=== PATIENT | female | born 1985 ===

== ENCOUNTER 2025-07-18 10:10 | Outpatient (AMB) | payer BC, SELFPAY ==
--- NOTE | 2025-07-18 10:05 | MHC.WMTHER ---
Intake Intake Visit Reasons: VIDEO OP Therapy Behavioral Health Assessment Weight Management Therapy Therapy Notes Details The patient is a 39-year-old female presenting for her initial session. The focus of today?s visit was to complete the intake and comprehensive assessment. She reports experiencing episodic anxiety lasting 1?2 weeks at a time. During these episodes, she notes a significant decrease in appetite and describes engaging in catastrophic thinking, particularly related to health concerns. She becomes preoccupied with fears of serious illness and reports feeling paranoid about potential harm coming to her children, especially when they are sick. These anxiety episodes typically occur a few times per year and are most often triggered by her children?s illnesses. The patient describes the past summer as particularly challenging, marked by frequent miscommunication with her , increased anxiety, and strained family dynamics. Current medications include Sertraline 25 mg daily, prescribed by her PCP, and Hydroxyzine 25 mg as needed for anxiety. Presenting Concerns Referral Source Self-referred. Reason for referral Continue MH treatment. Precipitating Event Increased anxiety with debilitating symptoms. Living Situation Current Living Situation Own At risk of losing current housing? No Satisfied with current living situation? Yes Comments Pt lives with her and 2 kids. Social History Family history and relationship Pt is and they have 2 children. They have been together for about 16 years total. PT is very close to her parents and she has 1 brother who lives in [facility], 1 hr away. Her 's family are close, he has 2 siblings. 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 Developmental history and status None, Currently WNL. Social support Parents, , a close friend with whom she speaks daily and other close girlfriends. 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 Community support None. Mosque/Spirituality Baptist Cultural/Ethnic information is Iranian, they follow Iranian ortodox culture. Legal Involvement and History Current or historical involvement with the legal system? Npne Education Highest grade completed Bachelors degree Currently enrolled in educational program? No Interested in further educational program? 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 Employment Employment Status Unemployed (3 years ago. ) Wants help to find employment? No Meaningful activities workouts, family activities, Financial Situation Describe current financial situation Comfortable Financial assistance? None Service Service? No Mental Health and Addiction Treatment Current/Past substance abuse? No Current/Past addictive behavior concerns? No Medical and Physical Health Summary Additional Medical History not covered in history PMDS Sexual History concerns None reported Physical exam in the last year? Yes Pain Screening Current pain? No Pain in the last few months? No Medications Is the patient compliant with medications? Yes Does the patient have Muniz Guardian in place? Not applicable Does the patient use complimentary health approaches? No Trauma/Abuse History History of trauma? No Assessment & Plan Assessment & Plan (1) Generalized anxiety disorder: Code(s): F41.1 - Generalized anxiety disorder (2) Major depressive disorder, recurrent episode: Code(s): F33.9 - Major depressive disorder, recurrent, unspecified Qualifiers: Major depression episode severity: moderate Qualified Code(s): F33.1 - Major depressive disorder, recurrent, moderate Plan Initiate bi-weekly therapy sessions. PHQ-9 will be administered at the next visit to further assess depressive symptoms. Next appointment scheduled for 07/28 at 11am via video. Telehealth Telehealth [facility] Location of provider rendering services: practice address Location of patient: address on file Patient Identification confirmed using: Name, : Yes Telehealth method: video Patient verbally consented to treatment: Yes Patient verbally consented to billing insurance company: Yes Patient informed of any privacy concerns related to visit: Yes Minutes spent on Phone/Video with Pt.: 55 [place] [address] Tele Psy Diag Eval Patient Type New Diagnoses Generalized anxiety disorder F41.1 Moderate episode of recurrent major depressive disorder F33.1 Major depression episode severity: moderate Time Spent (min) 55
--- OUTSIDE RECORDS SUMMARY | 2025-07-18 11:58 | XMS_ITS | Clinical Summary ---
Author Organization [facility] [address] Address [address] [place] [address] Care Team Providers Care Forensic Investigator Name Role Phone Gely Larkin MD, Francisco Stanford Primary Care Provi maria guadalupe Allergies Active Allergy Reactions Criticality Noted Date Comments Codeine 02/22/2018 Medications Alaina 28, 3-0.02 mg tablet TAKE 1 TABLET BY MOUTH EVERY DAY 01/13/2023 Active sertraline (ZOLOFT) 50 MG tablet TAKE 1 TABLET BY MOUTH EVERY DAY 03/07/2023 Active pseudoephedrine HCl (SUDAFED ORAL) Take by mouth Active Social History Tobacco Use Types Packs/Day Years Used Date Smoking Tobacco: Never Smokeless Tobacco: Never Tobacco Cessation:Counseling Given: Yes Comments No Sex and Gender Information Value Date Recorded Sex Assigned at Not on file Legal Sex Female 7:14 AM EDT Gender Identity Not on file Sexual Orientation Not on file Last Filed Vital Signs Vital Sign Reading Time Taken Comments Blood Pressure - - Pulse - - Temperature - - Respiratory Rate 16 04/03/2023 7:56 AM EDT Oxygen Saturation - - Inhaled Oxygen Concentration - - Weight 81.6 kg (180 lb) 04/03/2023 7:56 AM EDT Height 177.8 cm (5' 10 ) 04/03/2023 7:56 AM EDT Body Mass Index 25.83 04/03/2023 7:56 AM EDT Plan of Treatment Health Maintenance Due Date Last Done Comments Depression: Screening Annual ly using PHQ-2/9 in Adults 18 yrs or above (or HM Modifier)([facility]) 2004 Hepatitis C Virus Infection in Adolescents and Adults: Screening (or Modifier) ([facility]) 2004 [facility] Screening Reminder: Annually for all adults ([facility]) 2004 Tobacco Smoking Cessation: i n Adults excluding Women: Behavioral and Pharmacotherapy Interventions ([facility] ) 2004 Cervical Cancer Screenin-65 yrs of age (or Modifier) 2007 Cervical Cancer Screening: P ap every 3 yrs pts age 21-65 2007 Cervical Cancer: Pap Screeni ng with Modifier timing ([facility] ) 2007 Cervical Cancer: hrHPV alone or with cotesting Pap for Pts 30-65yrs screening every 5yrs ([facility] ) 2007 Flu Vaccination: Yearly for ages 18mos through 64 years (or Modifier)([facility]) 05/02/2025 COVID-19 Vaccine Screening: Initial Series and Booster Status ([facility]) ( - 2024- season) 2025 01/07/2021, 12/11/2020 DTaP/Tdap/Td Vaccines ([facility]) (3 - Td or Tdap) 01/15/2032 01/14/2022, 03/04/2019 Zoster/Shingles Vaccine Seri es Screening: Adults aged 18+ yrs (or HM Modifiers)([facility] ) (1 of 2) 2036 Pneumococcal Vaccination Screening: Pts 0-19 & 19-49 yrs of age ([facility]) Aged Out No longer eligible based on patient's age to complete this topic Medical Devices Not on file Insurance [facility] Care Teams Forensic Investigator Relationship Specialty Start Date End Date Francisco Hong Jr., MD [address] [place] [id number] PCP - General Family Medicine 04/03/23
== END 2025-07-18 11:07 | disposition home or self-care (01) ==
LOC: HO.HOP 10:10
PROVIDERS: Visit Provider Counselor Mental Health
DX: F41.1 Generalized anxiety disorder (principal); F33.1 Major depressive disorder, recurrent, moderate
CPT/HCPCS: 90791